=== PATIENT | female | born 2000 | race Caucasian/White ===

== ENCOUNTER 2025-06-15 09:14 | Emergency (ER) | payer SELFPAY ==
[~2025-06-15] VITALS: Ht 160 cm; Wt 61.4 kg
[~2025-06-15 09:14] MED LIST: LEVO25TA5 PO
[2025-06-15] MEDS ORDERED: TIZA2CAP PO (09:33)
[2025-06-15 13:32] LABS: BASO # 0.0 10^3/uL (0.0-0.2); BASO % 0.4 % (0.0-1.0); EOS # 0.0 10^3/uL (0.0-0.5); EOS % 0.8 % (0.0-3.0); LYMPH # 2.2 10^3/uL (1.5-5.0); LYMPH % 41.2 % (24.0-44.0); MONO # 0.5 10^3/uL (0.0-0.8); MONO % 8.7 % (2.0-8.0); NEUTROPHILS # 2.6 10^3/uL (1.5-8.5); NEUTROPHILS % 48.7 % (36.0-66.0); PLATELET COUNT, AUTOMATED 225 10^3/uL (150-450)
[2025-06-15] MEDS: PANTOPRAZOLE 40MG VIAL IV ONE (13:32)
[2025-06-15 14:02] LABS: ALT/SGPT 20 U/L (7.0-40); AST/SGOT 19 U/L (<34); CALCIUM LEVEL 9.4 MG/DL (8.5-10.1); CARBON DIOXIDE LEVEL 27 MMOL/L (20-31); CHLORIDE LEVEL 103 MMOL/L (98-107); CREATININE FOR GFR 0.78 MG/DL (0.55-1.30); GLOMERULAR FILTRATION RATE > 90.0 (>60); POTASSIUM SERUM 3.9 MMOL/L (3.5-5.1); SODIUM LEVEL 140 MMOL/L (136-145)
[2025-06-15 14:03] LABS: HCG, SERUM QUALITATIVE NEGATIVE (NEGATIVE)
[2025-06-15 14:17] LABS: KETONE, URINE AUTO RFX TRACE mg/dL (NEGATIVE); LEUKOCYTE ESTERASE UR AUTO RFX NEGATIVE (NEGATIVE); MUCUS, URINE RFX SMALL (NEGATIVE); NITRITE, URINE AUTO RFX NEGATIVE (NEGATIVE); RBC, URINE AUTO RFX 0 /HPF (0-3); SQUAM EPITHELIAL CELL UR AURFX 4 /HPF (0-6); WBC, URINE AUTO RFX 1 /HPF (0-3)
[2025-06-15 14:30] VITALS: BP 100/56; TEMP 97.8; O2SAT 99
[2025-06-15] MEDS ORDERED: PROT20TA11 PO (14:41)
[2025-06-15] MEDS ORDERED: ONDA-282 PO (14:41)
== END 2025-06-15 14:47 | disposition home or self-care (01) ==
LOC: M ED 09:14
DX: R11.2 Nausea with vomiting, unspecified (principal); E80.7 Disorder of bilirubin metabolism, unspecified; Z90.49 Acquired absence of other specified parts of digestive tract; Z88.6 Allergy status to analgesic agent; Z88.8 Allergy status to other drugs, medicaments and biological substances; Z79.899 Other long term (current) drug therapy
CPT/HCPCS: 80048; 80076; 81001; 83690; 84443; 84703; 85025; 96374; 99284; J2470